=== PATIENT | female | born 1950 | race Caucasian/White ===

== ENCOUNTER 2025-01-06 15:44 | Emergency (ER) | payer OTHER, MEDICARE, BC ==
[~2025-01-06 15:44] MED LIST: Iopamidol-370 76% 500 ML MDV (1 ML CHARGE) ONE
[2025-01-06] MEDS ORDERED: Acetaminophen 500 MG TAB ONE (16:01)
[2025-01-06 16:05] LABS: #Basophils 0.03 10x3/uL (0.0-0.2); #Eosinophils 0.05 10x3/uL (0.0-0.7); #Monocytes 0.97 10x3/uL (0.11-0.59); #Neutrophils 7.62 10x3/uL (1.40-6.50); %Basophils 0.3 % (0.0-1.0); %Eosinophils 0.5 % (0.0-10.0); %Lymphocytes 17.8 % (21.0-51.0); %Monocytes 9.2 % (0.0-10.0); %Neutrophils 71.8 % (42.0-75.0); Hematocrit 43.1 % (36.0-47.0); Hemoglobin 14.0 g/dL (12.0-16.0); Mean Corpuscular Hemoglobin 28.8 pg (27.0-31.0); Mean Corpuscular Volume 88.7 fL (78.0-98.0); Platelet Count 191 10x3/uL (130-400); Red Blood Cell (RBC) Count 4.86 mill/uL (4.20-5.40); White Blood Cell (WBC) Count 10.60 10x3/uL (4.8-10.8)
[2025-01-06 16:20] LABS: INR-International Normal Ratio 1.0; PTT 25.1 sec (22.9-36.1); Prothrombin Time 13.2 sec (12.0-14.7)
[2025-01-06 16:32] LABS: ALT (SGPT) 30 U/L (Less than 34); AST (SGOT) 34 U/L (11-34); Albumin 4.0 g/dL (3.1-4.5); Alkaline Phosphatase 59 U/L (40-110); Anion Gap 14 mmol/L (10-20); BUN (Urea Nitrogen) 14 mg/dL (9.8-20.1); Bilirubin, Total 1.4 mg/dL (0.3-1.2); CK (CPK) 101 U/L (29-168); Calc. Creatinine Clearance 0 mL/min (70-130); Calcium 9.1 mg/dL (7.8-10.44); Carbon Dioxide 22 mmol/L (23-31); Chloride 108 mmol/L (98-107); Globulin 3.2 g/dL (2.4-3.5); Glucose 104 mg/dL (83-110); Lipase 22 U/L (8-78); Potassium 4.3 mmol/L (3.5-5.1); Sodium 140 mmol/L (136-145)
[2025-01-06] MEDS ORDERED: Ketorolac Tromethamine 30 MG (1 mL) VIAL ONE (17:06)
== END 2025-01-06 17:10 | disposition home or self-care (01) ==
LOC: ERS 15:44
DX: S20.212A Contusion of left front wall of thorax, initial encounter (principal); N63.20 Unspecified lump in the left breast, unspecified quadrant; M25.531 Pain in right wrist; V89.2XXA Person injured in unspecified motor-vehicle accident, traffic, initial encounter
CPT/HCPCS: 36415; 70450; 71260; 72125; 80053; 82550; 83690; 84484; 85025; 85610; 85730; 86850; 86900; 86901; 93005; 96374; G0390; J1885; Q9967